=== PATIENT | male | born 1990 | race Caucasian/White ===

== ENCOUNTER 2018-02-06 09:26 | Emergency (ER) | payer OTHER ==
[2018-02-06] MEDS ORDERED: HYDROmorphONE/DILAUDID 2 MG/ML INJ IVP ONE (09:41)
[2018-02-06] MEDS ORDERED: KETOROLAC 30 MG/1 ML SDV IVP ONE (09:41)
[2018-02-06] MEDS ORDERED: ONDANSETRON 4 MG/2 ML VIAL IVP ONE (09:41)
[2018-02-06] MEDS ORDERED: NS 1,000 ML IV ONE (09:41)
--- NOTE | 2018-02-06 09:45 | EDPHY ---
H & P Stated Complaint: Rt Quad abd pain - woke him up 1 hr [facility] A CLASS Time Seen by Provider: 02/06/18 09:34 HPI/ROS: CHIEF COMPLAINT: Right lower quadrant pain HISTORY OF PRESENT ILLNESS: Patient is a 28-year-old man who woke up with severe right lower quadrant pain 1 hr ago. He felt normal yesterday. He is nauseous but has not vomited. No diarrhea. No fever. He presented initially to an urgent care and was referred here. No history of abdominal surgery. Severity: Severe Modifying factors: None REVIEW OF SYSTEMS: Constitutional: denies: chills, fever, recent illness, recent injury EENTM: denies: blurred vision, double vision, nose congestion Respiratory: denies: cough, shortness of breath Cardiac: denies: chest pain, irregular heart rate, lightheadedness, palpitations Gastrointestinal/Abdominal: denies: abdominal pain, diarrhea, nausea, vomiting, blood streaked stools Genitourinary: denies: dysuria, frequency, hematuria, pain Musculoskeletal: denies: joint pain, muscle pain Skin: denies: lesions, rash, jaundice, bruising Neurological: denies: headache, numbness, paresthesia, tingling, dizziness, weakness Hematologic/Lymphatic: denies: blood clots, easy bleeding, easy bruising Immunologic/allergic: denies: HIV/AIDS, transplant 10 systems reviewed and negative except as noted EXAM: GENERAL: In moderate distress, writhing around the bed. HEAD: Atraumatic, normocephalic. EYES: Pupils equal round and reactive to light, extraocular movements intact, sclera anicteric, conjunctiva are normal. ENT: TMs normal, nares patent, oropharynx clear without exudates. Moist mucous membranes. NECK: Normal range of motion, supple without lymphadenopathy or JVD. LUNGS: Breath sounds clear to auscultation bilaterally and equal. No wheezes rales or rhonchi. HEART: Regular rate and rhythm without murmurs, rubs or gallops. ABDOMEN: Soft, nontender, normoactive bowel sounds. No guarding, no rebound. No masses appreciated. BACK: No CVA tenderness, no spinal tenderness, step-offs or deformities EXTREMITIES: Normal range of motion, no pitting or edema. No clubbing or cyanosis. NEUROLOGICAL: Cranial nerves II through XII grossly intact. Normal speech, normal gait. 5 strength, normal movement in all extremities, normal sensation , normal reflexes PSYCH: Normal mood, normal affect. SKIN: Warm, dry, normal turgor, no visible rashes or lesions. Source: Patient Exam Limitations: No limitations - Personal History Current Tetanus Diphtheria and Acellular Pertussis (TDAP): Unsure - Medical/Surgical History Hx Asthma: No Hx Chronic Respiratory Disease: No Hx Diabetes: No Hx Cardiac Disease: No Hx Renal Disease: No Hx Cirrhosis: No Hx Alcoholism: No Hx HIV/AIDS: No Hx Splenectomy or Spleen Trauma: No Other PMH: denies - Family History Significant Family History: No pertinent family hx - Social History Smoking Status: Current every day smoker Alcohol Use: Sober Drug Use: None Constitutional: Initial Vital Signs Heart Rate 57 L 02/06/18 09:33 Respiratory Rate 18 02/06/18 09:33 Blood Pressure 148/88 H 02/06/18 09:33 O2 Sat (%) 99 02/06/18 09:33 O2 Delivery Mode Room Air Allergies/Adverse Reactions: No Known Allergies Allergy (Unverified 02/06/18 09:33) Home Medications: Medication Instructions Recorded Ketorolac Tromethamine 10 mg PO Q6H PRN #16 tab 02/06/18 Ondansetron Odt [Zofran Odt 4 mg 4 mg PO Q4 PRN #20 tab 02/06/18 (RX)] Tamsulosin HCl [Flomax] 0.4 mg PO DAILY #10 cap 02/06/18 morphINE IR [morphINE IR 15 mg (*)] 15 mg PO Q3-4PRN PRN #10 tab 02/06/18 Medical Decision Making - Diagnostics Imaging Results: Imaging Impressions Abdomen/Pelvis CT 02/06/18 09:50 Impression: 1. Mild right hydroureteronephrosis, secondary to a 5-mm obstructing calculus in the distal right ureterovesical junction. 2. No additional nephrolithiasis. 3. No left nephrolithiasis or hydronephrosis. Attention: This CT examination is specifically designed to evaluate patients who are clinically suspected of having acute obstructive uropathy. This examination does not use radiographic contrast, and as such, provides only a limited evaluation of the abdomen, pelvis and retroperitoneum. If there is further clinical suspicion for pathological conditions other than obstructive uropathy, a complete CT evaluation of the abdomen and pelvis utilizing intravenous, oral, and rectal contrast should be considered. Findings and recommendations discussed with Emergency Department physician, Dr. Uriel Cabrera at 1015 hours on February 06, 2018. Final report concurs with initial preliminary interpretation. Imaging: Discussed imaging studies w/ at risk paraprofessional Radiologist ED Course/Re-evaluation: Patient is writhing around the bed which is consistent with a kidney stone. He complains of right lower quadrant pain but has no tenderness with palpation. He is providing a urine sample. Will treat upfront with pain and nausea medication and fluids. 10:15 a.m. the patient is feeling much better. We discussed the CT results. Will start him on Flomax and pain medications and follow up with Urology. We encouraged him to strain his urine. Differential Diagnosis: Partial list of the Differential diagnosis considered include but were not limited to; kidney stone, appendicitis and although unlikely based on the history and physical exam, I also considered obstruction, ischemia. I discussed these differential diagnoses and the plan with the patient as well as the usual and expected course. The patient understands that the diagnosis is provisional and that in medicine we are not always correct and that further workup is often warranted. Usual and customary warnings were given. All of the patient's questions were answered. The patient was instructed to return to the emergency department should the symptoms at all worsen or return, otherwise to followup with the physician as we discussed. - Data Points Medications Given: Discontinued Medications Hydromorphone HCl (Dilaudid) 1 mg IVP EDNOW ONE Stop: 02/06/18 09:42 Last Admin: 02/06/18 09:57 Dose: 1 mg Hydromorphone HCl (Dilaudid) 1 mg IVP EDNOW ONE Stop: 02/06/18 10:34 Last Admin: 02/06/18 10:40 Dose: 1 mg Sodium Chloride (Ns) 1,000 mls @ 0 mls/hr IV EDNOW ONE; Wide Open PRN Reason: Protocol Stop: 02/06/18 09:42 Last Admin: 02/06/18 09:55 Dose: 1,000 mls Ketorolac Tromethamine (Toradol) 15 mg IVP EDNOW ONE Stop: 02/06/18 09:42 Last Admin: 02/06/18 09:54 Dose: 15 mg Ondansetron HCl (Zofran) 4 mg IVP EDNOW ONE Stop: 02/06/18 09:42 Last Admin: 02/06/18 09:55 Dose: 4 mg Tamsulosin HCl (Flomax) 0.4 mg PO EDNOW ONE Stop: 02/06/18 10:19 Last Admin: 02/06/18 10:40 Dose: 0.4 mg Point of Care Test Results: CBC CBC Collection Date 02/06/18 CBC Collection Time 09:45 WBC 5.8 RBC 5.37 HGB 16.8 HCT 47.6 PLT 241 Neut # 3.0 Neut 50.6 LYMPH # 2.3 LYMPH 40.3 Other WBC # 0.5 Other WBC 9.1 MCV 88.6 Chemistry 02/06/18 09:47 POC Sodium 144 mEq/L mEq/L (135-145) POC Potassium 3.9 mEq/L mEq/L (3.3-5.0) POC Chloride 107.0 mEq/L mEq/L (97-110) POC Total CO2 22 mEq/L mEq/L (22-31) POC BUN 13 mg/dL mg/dL (7-23) POC Creatinine 0.9 mg/dL mg/dL (0.7-1.3) POC Glucose 130 mg/dL H mg/dL (70-100) POC Calcium 9.8 mg/dL mg/dL (8.5-10.4) POC Total Bilirubin 1.6 mg/dL H mg/dL (0.1-1.4) POC AST 33 IU/L IU/L (17-59) POC ALT 22 IU/L IU/L (21-72) POC Alk Phosphatase 51 IU/L IU/L (38-126) POC Total Protein 7.3 g/dL g/dL (6.3-8.2) POC Albumin 5.0 g/dL g/dL (3.5-5.0) Urine Dip Collection Date 02/06/18 Collection Time 09:45 Specific [place] (1.002-1.030) 1.030 PH (5.0-7.5) 6.5 Leukocytes (Negative) Negative Nitrites (Negative) Negative Protein (Negative) 1+ Glucose (Negative) Negative Ketones (Negative) 2+ Urobilnogen (0.2-1.0 EU) 0.2 Bilirubin (Negative) Negative Blood (Negative) 3+ Departure - Departure Disposition: Home, Routine, Self-Care Clinical Impression: Right kidney stone Condition: Fair Instructions: Ketorolac (By mouth), Morphine, Rapid Release (By mouth), Ondansetron (By mouth), Tamsulosin (By mouth), Flank Pain (ED) Additional Instructions: Strain urine as we discussed, take Toradol for pain control 1st and if this is not enough then take the morphine IR. Referrals: NONE *PRIMARY CARE P,. [Primary Care Provider] - As per Instructions Elba Oswald MD [Medical Doctor] - 5-7 days, call for appt. Stand Alone Forms: Work Excuse Prescriptions: Ketorolac Tromethamine 10 mg PO Q6H PRN #16 tab PRN Reason: Pain/inflammation morphINE IR [morphINE IR 15 mg (*)] 15 mg PO Q3-4PRN PRN #10 tab PRN Reason: Pain, Severe Ondansetron Odt [Zofran Odt 4 mg (RX)] 4 mg PO Q4 PRN #20 tab PRN Reason: Nausea & Vomiting Tamsulosin HCl [Flomax] 0.4 mg PO DAILY #10 cap
[2018-02-06] MEDS ORDERED: TAMSULOSIN HCL 0.4 MG CAP PO ONE (10:18)
[2018-02-06] MEDS ORDERED: HYDROmorphONE/DILAUDID 1 MG/ML INJ IVP ONE (10:33)
[2018-02-06 11:30] VITALS: BP 144/67
== END 2018-02-06 11:28 | disposition home or self-care (01) ==
LOC: CED 09:26
DX: N20.1 Calculus of ureter (principal); E86.9 Volume depletion, unspecified
CPT/HCPCS: 74176-PO; 80053-PO; 96374; J1170; J1885; J2405